=== PATIENT | female | born 1935 ===

== ENCOUNTER 2018-02-22 06:47 | Day surgery (SDC) | payer OTHER ==
[~2018-02-22 06:47] MED LIST: ACEBUTOLOL HCL; ASA81 MG; ATORVASTATIN CA10 MG; GABAPENTIN400 MG; LOSARTAN POTASS50 MG
[2018-02-22] MEDS ORDERED: MACROBID 100 M100 MG PO (15:51)
[2018-02-22] MEDS ORDERED: ULTRACET PO (15:52)
== END 2018-02-22 17:25 | disposition home or self-care (01) ==
LOC: CIR.AMB 06:47
DX: N81.3 Complete uterovaginal prolapse (principal)